=== PATIENT | female | born 1970 | race Hispanic/Latino ===

== ENCOUNTER → 2020-01-12 | Outpatient (CLI) | payer BC ==
[~2020-01-12] VITALS: Ht 7.6 cm; Wt 106.5 kg
--- NOTE | 2020-01-12 15:20 | NUR ---
BARIATRIC NUTRITION CONSULT VISIT 09/03 2:00 PM - 2:30 PM Patient seeking Bariatric Sleeve procedure to jump start new weight loss and health journey. Patient has had previous experience with weight loss at a younger age, however in the last few years Patient has had difficulty losing weight and weight gain has been faster, according to patient. Patient was recently diagnosed with high cholesterol and is pending ARABELLA evaluation. Patient is enthusiastic about starting this new health journey with the help of the Bariatric Sleeve procedure. During consultation, Patient reveals poor eating habits due to busy job. Patient eats out a lot and relies on to prepare food at home. Previously, patient would eat late in the evening until patient began to experience GERD. Patient was advised to otherwise and GERD resolved. Patient also expressed she experiences high stress and has poor sleep due to waking up in the middle of the night without cause. RD reviewed Healthy MyPlate and handout for incorporating more vegetables and fruits with patient and emphasized importance of making healthier food choices, even when eating "on-the-go". RD also discussed disadvantages of high sugar diet and recommended cutting sugar-sweetened beverages from diet. RD to provide Healthy Eating On-the-run handout to Patient via e-mail. Patient also has a treadmill at home and desires to start exercising more. Three goals to work on for follow up visit include: 1) Develop better eating habits 2) Exercising more frequently 3) Making better grocery choices. RD to follow up in one month. Addendum: 01/12/20 at [address] RD Amended: Links added.
== END | disposition home or self-care (01) ==
LOC: DTH 13:44
PROVIDERS: ATTEND Surgery
DX: E66.01 Morbid (severe) obesity due to excess calories (principal)
CPT/HCPCS: 97802